=== PATIENT | female | born 1950 | race Caucasian/White ===

== ENCOUNTER 2022-06-28 12:17 | Outpatient (REF) | payer OTHER, SELFPAY | END 2022-06-28 12:18 | disposition home or self-care (01) | LOC: HO.MAMMO 12:17 | PROVIDERS: PCP Pediatrics; Visit Provider Pediatrics | DX: Z13.89 Encounter for screening for other disorder (principal) ==

== ENCOUNTER 2022-11-29 11:46 | Outpatient (REF) | payer OTHER, SELFPAY ==
[2022-11-29 14:36] LABS: MANUAL DIFF FLAG NO
[2022-11-29 14:38] LABS: Basophils Absolute Auto 0.1 X10*3/uL (0.0-0.2); Basophils Percent Auto 0.9 % (0-2); Eosinophils Absolute Auto 0.2 X10*3/uL (0.0-0.4); Eosinophils Percent Auto 3.8 % (0-4); Hematocrit 41.9 % (37.0-47.0); Hemoglobin 13.8 g/dl (12.0-16.0); Imm Gran Abs Auto 0.02 X10*3/uL (0.00-0.03); Imm Gran Pct Auto 0.3 % (0.0-0.4); Lymphocytes Percent Auto 34.6 % (20-40); Mean Corpuscular HGB Conc 32.9 g/dl (31.0-35.0); Mean Corpuscular Hemoglobin 28.9 pg (27.0-33.0); Mean Corpuscular Volume 87.7 fL (80.0-98.0); Mean Platelet Volume 11.8 fL (9.4-12.3); Monocytes Absolute Auto 0.4 X10*3/uL (0.1-1.2); Monocytes Percent Auto 6.8 % (2-11); Neutrophils Absolute Auto 3.1 x10*3/uL (2.0-8.3); Neutrophils Percent Auto 53.6 % (45-73); Platelet Count 196 X10*3/uL (160-400); Red Blood Count 4.78 X10*6/uL (4.20-5.50); Red Cell Distribution Width 12.6 % (11.0-16.0); White Blood Count 5.7 X10*3/uL (4.8-10.8)
[2022-11-29 16:11] LABS: Anion Gap 12 (12-20); Blood Urea Nitrogen 21 mg/dL (9-16); Calcium 10.1 mg/dL (8.4-10.2); Carbon Dioxide 28 mmol/L (22-29); Chloride 106 mmol/L (96-108); Cholesterol 222 mg/dL (<200); Estimated Glomerular Filt Rate > 60; Glucose Fasting 88 mg/dL (60-99); HDL Cholesterol 50 mg/dL (>40); LDL Cholesterol Calculated 130 mg/dL (<100); Potassium 4.8 mmol/L (3.3-5.1); Sodium 141 mmol/L (135-145); Triglycerides 213 mg/dL (<150)
[2022-11-29 16:31] LABS: TSH reflex Free T4 2.47 uIU/mL (0.32-4.0)
[2022-11-29 16:38] LABS: Folate 14.4 ng/mL (> or = 4.0); Vitamin B12 685 pg/mL (200-900)
== END 2022-11-29 11:47 | disposition home or self-care (01) ==
LOC: HO.CHCLDS 11:46
PROVIDERS: Visit Provider Pediatrics
DX: R41.3 Other amnesia (principal); Z13.89 Encounter for screening for other disorder
CPT/HCPCS: 36415; 80048; 80061; 82306; 82607; 82746; 84443; 85025

== ENCOUNTER 2024-06-19 10:08 | Outpatient (REF) | payer OTHER, SELFPAY ==
--- OUTSIDE RECORDS SUMMARY | 2024-06-19 12:37 | XMS_ITS | Encounter Summary ---
Author Organization [employer] Address [address] [facility] 7t [place] [address] Care Team Providers Care Computer Operations Specialist Name Role Phone Rama Diane MD Primary Care Provider [phone] Reason for Visit * Reason Comments Follow-up Depression Encounter Details Date Type Department Care Team (Latest Contact Info) Description 06/19/2024 9:15 AM EDT Office Visit [facility] MED & PEDS [address] [place], [place] [phone] Rama Diane MD [address] [place] [address] Elevated BP without diagnosis of hypertension (Primary Dx); Acquired hypothyroidism Social History Tobacco Use Types Packs/Day Years Used Date Smoking Tobacco: Never Smokeless Tobacco: Never Depression Answer Date Recorded Patient Health Questionnaire-9 Score 18 02/08/2024 Patient Health Questionnaire-9 Score 18 02/08/2024 Last PHQ-9: Questionnaire Data Not on file 1 04/09/2023 Housing Stability Answer Date Recorded What is your housing situation today? I have kylah dotson 02/08/[address] you li ve. Do you have problems with any of the following? None of the above 02/08/2024 Food Insecurity Answer Date Recorded Within the past 12 months, y ou worried that your food would run out before you got money to buy more: Never True 02/08/2024 Within the past 12 months,th e food you bought just didn't last and you didn't have enough money to get more: Never True 04/2023 Transportation Answer Date Recorded In the past 12 months, has l ack of transportation kept you from medical appts, meetings, work or from getting things needed for daily living? No 02/08/2024 Utilities Answer Date Recorded In the past 12 months, has t he electric, gas, oil or water company threatened to shut off services in your home? No 02/08/2024 Depression Answer Date Recorded Patient Health Questionnaire-2 Score 6 02/08/2024 Internet Access Answer Date Recorded Internet Access Q1 Yes 02/08/2024 Internet Access Q2 Not on file 02/08/2024 Comments Unknown Sex and Gender Information Value Date Recorded Sex Assigned at Female 02/06/2022 10:15 AM EDT Legal Sex Female 10:15 AM EDT Gender Identity Female 02/06/2022 10:15 AM EDT Sexual Orientation Don't know 02/06/2022 10 :15 AM EDT documented as of this encounter Last Filed Vital Signs Vital Sign Reading Time Taken Comments Blood Pressure 154/86 06/19/2024 8:54 AM EDT Pulse 74 06/19/2024 8:54 AM EDT Temperature 36.6 ??C (97.8 ??F) 06/19/2024 8:54 AM ED T Respiratory Rate 14 06/19/2024 8:54 AM EDT Oxygen Saturation 96% 06/19/2024 8:54 AM EDT Inhaled Oxygen Concentration - - Weight 67.4 kg (148 lb 9.6 oz) 06/19/2024 8:54 A M EDT Height 161.3 cm (5' 3.5 ) 06/19/2024 8:54 AM EDT Body Mass Index 25.91 06/19/2024 8:54 AM EDT documented in this encounter Plan of Treatment Upcoming Encounters Date Type Department Care Team (Late st Contact Info) Description 08/20/2024 11:30 AM EDT Office Visit [facility] MED & PEDS [address] [place] [address] Rama Diane MD [address] [place] [address] Scheduled Orders Name Type Priority Associated Diagnoses Orde r Schedule CBC auto differential Lab Routine Elevated BP without diagnosis of hypertension Acquired hypothyroidism Expected: 06/19/2024 (Approximate), Expires: 06/19/2025 Vitamin B12/Folate, Serum Panel Lab Routine Elevated BP without diagnosis of hypertension Acquired hypothyroidism Expected: 06/19/2024, Expires: 06/19/2025 TSH W/Reflex to FT4 Lab Routine Elevated BP without diagnosis of hypertension Acquired hypothyroidism Expected: 06/19/2024 (Approximate), Expires: 06/19/2025 Urinalysis with reflex microscopic Lab Routine Elevated BP without diagnosis of hypertension Acquired hypothyroidism Expected: 06/19/2024, Expires: 06/19/2025 Albumin, Random Urine W/Creatinine Lab Routine Elevated BP without diagnosis of hypertension Acquired hypothyroidism Expected: 06/19/2024 (Approximate), Expires: 06/19/2025 Basic Metabolic Panel, Fasting Lab Routine Elevated BP without diagnosis of hypertension Acquired hypothyroidism Expected: 06/19/2024 (Approximate), Expires: 06/19/2025 Magnesium Lab Routine Elevated BP without diagnosis of hypertension Acquired hypothyroidism Expected: 06/19/2024, Expires: 06/19/2025 documented as of this encounter Visit Diagnoses Diagnosis Elevated BP without diagnosis of hypertension- Primary Acquired hypothyroidism Unspecified hypothyroidism documented in this encounter Additional Health Concerns Assessment Noted Time PHQ-9 Depression Total Score: 18 024 10:26 AM EDT documented as of this encounter Care Teams Computer Operations Specialist Relationship Specialty Start Date End Date Rama Diane MD [address] [place] [id number] PCP - General Family Medicine 04/09/18 documented as of this encounter
--- OUTSIDE RECORDS SUMMARY | 2024-06-19 12:37 | XMS_ITS | Encounter Summary ---
Author Organization [employer] Address [address] [facility] 7t [place] [address] Care Team Providers Care Court Registry Officer Name Role Phone Rama Diane MD Primary Care Provider [phone] Encounter Details Date Type Department Care Team (Latest Contact Info) Description 06/19/2024 Travel Social History Tobacco Use Types Packs/Day Years Used Date Smoking Tobacco: Never Smokeless Tobacco: Never Depression Answer Date Recorded Patient Health Questionnaire-9 Score 18 02/08/2024 Patient Health Questionnaire-9 Score 18 02/08/2024 Last PHQ-9: Questionnaire Data Not on file 1 04/09/2023 Housing Stability Answer Date Recorded What is your housing situation today? I have kylahtaurus dotson 02/08/[address] you [...] AM EDT documented as of this encounter Plan of Treatment Upcoming Encounters Date Type Department Care Team (Late st Contact Info) Description 08/20/2024 11:30 AM EDT Office Visit [facility] MED & PEDS [address] [place] [address] Rama Diane MD [address] [place] [address] documented as of this encounter Visit Diagnoses Not on filedocumented in this encounter Additional Health Concerns Assessment Noted Time PHQ-9 Depression Total Score: 18 024 10:26 AM EDT documented as of this encounter Care Teams Court Registry Officer Relationship Specialty Start Date End Date Rama Diane MD [address] [place] [address] PCP - General Family Medicine 04/09/18 documented as of this encounter
--- OUTSIDE RECORDS SUMMARY | 2024-06-19 12:37 | XMS_ITS | Encounter Summary ---
Author Organization [employer] Address [address] [facility] 7t [place] [address] Care Team Providers Care Room Inspector Name Role Phone Rama Diane MD Primary Care Provider [phone] Reason for Visit * Reason Comments Med Refill Encounter Details Date Type Department Care Team ([facility] st Contact Info) Description 06/18/2024 Refill [facility] MED & PEDS [address] [place], [place] [phone] Rama Diane MD [address] [place] [address] Acute cough; Acquired hypothyroidism; Age-related osteoporosis without current pathological fracture; Breast cancer screening by mammogram; Chronic right shoulder pain Social History Tobacco Use Types Packs/Day Years [...] Upcoming Encounters Date Type Department Care Team ([facility] st Contact Info) Description 08/20/2024 11:30 AM EDT Office Visit [facility] MED & PEDS [address] [place] [address] Rama Diane MD [address] [place] [address] documented as of this encounter Visit Diagnoses Diagnosis Acute cough Acquired hypothyroidism Unspecified hypothyroidism Age-related osteoporosis without current pathological fracture Breast cancer screening by mammogram Chronic right shoulder pain Pain in joint, shoulder region documented in this encounter Additional Health Concerns Assessment Noted Time PHQ-9 Depression Total Score: 18 024 10:26 AM EDT documented as of this encounter Care Teams Room Inspector Relationship Specialty Start Date End Date Rama Diane MD [address] [place] [address] PCP - General Family Medicine 04/09/18 documented as of this encounter
--- OUTSIDE RECORDS SUMMARY | 2024-06-19 12:37 | XMS_ITS | Encounter Summary ---
Author Organization [employer] Address [address] [facility] 7t [place] [address] Care Team Providers Care Food Checker Name Role Phone Rama Diane MD Primary Care Provider [phone] Encounter Details Date Type Department Care Team (Late Contact Info) Description 04/19/2022 Abstract [facility] ADULT [facility] [address] [place] [address] Hemalatha Guzman DDS [address] [place] [address] Social History Tobacco Use Types Packs/Day Years Used Date Smoking Tobacco: Never Assessed Comments Unknown Sex and Gender Information Value [...] Description 08/20/2024 11:30 AM EDT Office Visit [facility] MED & PEDS [address] [place] [address] Rama Diane MD [address] [place], [place] [phone] documented as of this encounter Visit Diagnoses Not on filedocumented in this encounter Care Teams Food Checker Relationship Specialty Start Date End Date Rama Diane MD [address] [place], [place] [phone] PCP - General Family Medicine 04/09/18 documented as of this encounter
--- OUTSIDE RECORDS SUMMARY | 2024-06-19 12:37 | XMS_ITS | Encounter Summary ---
Author Organization [employer] Address [address] [facility] 7t [place] [address] Care Team Providers Care Hotel Service Supervisor Name Role Phone Rama Diane MD Primary Care Provider [phone] Encounter Details Date Type Department Care Team (Late st Contact Info) Description 02/12/2024 Orders Only [facility] [address] [place] [address] Provider, MD Libby Social History Tobacco Use Types Packs/Day Years [...] Description 08/20/2024 11:30 AM EDT Office Visit [facility] CHC MED & PEDS [address] [place] [address] Rama Diane MD [address] [place] [address] documented as of this encounter Procedures Procedure Name Priority Date/Time Associated Diagnosis Comments XR SHOULDER 2+ VIEWS RIGHT Routine 02/11/2024 9:50 AM EST documented in this encounter Results * XR Shoulder 2+ Views Right (02/11/2024 9:50 AM EST) Anatomical Region Laterality Modality Upper Extremities, Shoulder Right Radi ographic Imaging us Historical Provider MD BARAJAS XR PROCEDURES Final R esult documented in this encounter Visit Diagnoses Not on filedocumented in this encounter Additional Health Concerns Assessment Noted Time PHQ-9 Depression Total Score: 18 024 10:26 AM EDT documented as of this encounter Care Teams Hotel Service Supervisor Relationship Specialty Start Date End Date Rama Diane MD [address] [place] [address] PCP - General Family Medicine 04/09/18 documented as of this encounter
--- OUTSIDE RECORDS SUMMARY | 2024-06-19 12:37 | XMS_ITS | Clinical Summary ---
Author Organization [employer] Address [address] [facility] 7t [place] [address] Care Team Providers Care Marketing Performance Analyst Name Role Phone Rama Diane MD Primary Care Provider [phone] Allergies No known active allergies Medications omega-3 (Fish Oil) 1000 MG capsuleIndicatio ns:Acute cough,Acquired hypothyroidism,A ge-related osteoporosis without current pathological fracture,Breast cancer screening by mammogram,Chroni c right shoulder pain take 1 capsule orally bid 60 capsule 11 05/16/19 23 Active albuterol 108 (90 Base) MCG/ACT inhalerIndicatio ns:Acute cough,Acquired hypothyroidism,A ge-related osteoporosis without current pathological fracture,Breast cancer screening by mammogram,Chroni c right shoulder pain INHALE 1 PUFF BY MOUTH EVERY 4 HOURS 8.5 g 1 05/07/19 24 Active atorvastatin (Lipitor) 20 MG tabletIndication s:Dyslipidemia TAKE 1 TABLET(20 MG) BY MOUTH IN THE MORNING 30 tablet 05/29/19 24 Active cetirizine (ZyrTEC) 10 MG tabletIndication s:Acute cough,Acquired hypothyroidism,A ge-related osteoporosis without current pathological fracture,Breast cancer screening by mammogram,Chroni c right shoulder pain TAKE 1 TABLET BY MOUTH EVERY DAY 90 tablet 3 07/05/19 24 Active cholecalciferol 50 MCG (1999 UT) capsuleIndicatio ns:Acute cough,Acquired hypothyroidism,A ge-related osteoporosis without current pathological fracture,Breast cancer screening by mammogram,Chroni c right shoulder pain TAKE 1 CAPSULE BY MOUTH EVERY 12 HOURS 60 capsule 11 07/05/19 24 Active omega-3 acid ethyl esters (Lovaza) 1 g capsule TAKE 1 CAPSULE BY MOUTH TWICE DAILY 60 capsule 11 01/07/20 24 Active levothyroxine (Synthroid, Levoxyl) 50 MCG tablet TAKE 1 TABLET BY MOUTH EVERY MORNING 90 tablet 1 01/07/20 24 Active meloxicam (Mobic) 7.5 MG tablet Take 1 tablet (7.5 mg) by mouth Once per day. 30 tablet 5 02/14/20 24 025 Active ascorbid acid ER (Vitamin C) 500 MG ER capsule TAKE 1 CAPSULE BY MOUTH DAILY 90 capsule 1 04/29/19 25 Active polyethylene glycol, PEG, 3350 (Glycolax) 17 GM/SCOOP powderIndication s:Chronic idiopathic constipation DISSOLVE 17 GRAMS IN 240ML OF FLUIDS AND DRINK BY MOUTH EVERY MORNING 119 g 2 04/29/19 25 Active ibuprofen 600 MG tablet Take 1 tablet (600 mg) by mouth every 8 (eight) hours if needed for moderate pain or fever. 90 tablet 3 06/20/19 25 025 Active Blood Pressure kitIndications:E levated BP without diagnosis of hypertension Check BP daily 1 kit 06/20/19 25 Active venlafaxine XR (Effexor XR) 37.5 MG 24 hr capsule Take 1 capsule (37.5 mg) by mouth Once per day. 30 capsule 3 06/20/19 25 026 Active traZODone (Desyrel) 50 MG tablet Take 1 tablet (50 mg) by mouth at bedtime. 30 tablet 3 02/01/20 23 025 Discontinued venlafaxine XR (Effexor XR) 75 MG 24 hr capsule Take 1 capsule (75 mg) by mouth Once per day. Do not crush or chew. 30 capsule 11 02/08/20 24 025 Discontinued Active Problems Problem Noted Date Diagnosed Date Adjustment disorder with anxious mood 03/16/2015 Acquired hypothyroidism 12/29/2011 Gastroesophageal reflux disease 12/29/2011 Encounters Date Type Department Care Team Description 06/19/2024 9:15 AM EDT Office Visit [facility] MED & PEDS [address] [facility] [place] [address] Rama Diane MD Elevated BP without diagnosis of hypertension (Primary Dx); Acquired hypothyroidism 06/19/2024 Travel 06/18/2024 Refill [facility] MED & PEDS [address] [place] [address] Rama Diane MD Acute cough; Acquired hypothyroidism; Age-related osteoporosis without current pathological fracture; Breast cancer screening by mammogram; Chronic right shoulder pain 04/28/2024 Refill [facility] MED & PEDS [address] [place] [address] Rama Diane MD Chronic idiopathic constipation from Last 3 Months Immunizations Name Administration Dates Next Due Zoster, Recombinant 02/08/2024 Social History Tobacco Use Types Packs/Day Years Used Date Smoking Tobacco: Never Smokeless Tobacco: Never Tobacco Cessation:Counseling Given: Not Answered Depression Answer Date Recorded Patient Health Questionnaire-9 [...] Don't know 02/06/2022 10 :15 AM EDT Last Filed Vital Signs Vital Sign Reading [...] Mass Index 25.91 06/19/2024 8:54 AM EDT Plan of Treatment Upcoming Encounters Date Type Department Care Team (Late st Contact Info) Description 08/20/2024 11:30 AM EDT Office Visit [facility] MED & PEDS [address] [place] [address] Rama Diane MD [address] [place] [address] Health Maintenance Due Date Last Done Comments CT Colonography 1948 Colonoscopy 1948 Colorectal Cancer Screening 1948 Dental Oral Exam 1948 Dental Prophylaxis 1948 Dental X-Ray: Bitewings 1948 Dental X-Ray: Full Mouth 1948 FIT DNA/Cologuard 1948 FIT 1948 FOBT 1948 Sigmoidoscopy 1948 Hepatitis C Screening 1966 RSV Patients and Patients Aged 60 years or older (1 - 1-dose 75+ series) 11/27/2023 COVID-19 Vaccine ( season) 2023 05/10/2021, 08/26/2020, 08/05/2020 Influenza Vaccine (#1) 2023 9, 01/30/2018, 05/11/2017, Additional history exists Zoster Vaccines (3 of 3) 04/04/2024 02/08/2024, 04/10 Depression Monitoring (PHQ-9) 08/07/2024 02/08/2024, 02/08/2024 Alcohol/Substance Use Screening 02/07/2025 02/08/2024 Depression Screening 02/07/2025 02/08/2024, 02/08/20 24 SDOH Screening 02/07/2025 02/08/2024 Tobacco Screening 02/07/2025 02/08/2024 DTaP/Tdap/Td Vaccines (2 - Td or Tdap) 03/16/2025 03/16/2015 Pneumococcal Vaccine: 50+ Years Completed 03/18/2019, 05/03/2015 HIB Vaccines Aged Out No longer eligi ble based on patient's age to complete this topic HPV Vaccines Aged Out No longer eligi ble based on patient's age to complete this topic Hepatitis A Vaccines Aged Out No long er eligible based on patient's age to complete this topic Hepatitis B Vaccines Aged Out No long er eligible based on patient's age to complete this topic IPV Vaccines Aged Out No longer eligi ble based on patient's age to complete this topic Meningococcal Vaccine Aged Out No onesimo sang eligible based on patient's age to complete this topic RSV under 20 months Aged Out No longe r eligible based on patient's age to complete this topic Rotavirus Vaccines Aged Out No longer eligible based on patient's age to complete this topic Insurance [facility] Care Teams Marketing Performance Analyst Relationship Specialty Start Date End Date Rama Diane MD [address] [place] [address] PCP - General Family Medicine 04/09/18
--- OUTSIDE RECORDS SUMMARY | 2024-06-19 12:37 | XMS_ITS | Encounter Summary ---
Author Organization [employer] Address [address] [facility] 7t [place] [address] Care Team Providers Care Lasting Machine Operator Hand Method Name Role Phone Rama Diane MD Primary Care Provider [phone] Reason for Visit * Reason Onset Date Comments Results 02/13/2024 Encounter Details Date Type Department Care Team ([facility] st Contact Info) Description 02/13/2024 Telephone [facility] MEDIC[facility] [address] [place] [address] Rama Diane MD [address] [place], [place] [phone] Results Social History Tobacco Use Types Packs/Day Years [...] AM EDT documented as of this encounter Miscellaneous Notes * Telephone Encounter - Emmanueljhonny RochaGerry - 02/13/2024 3:25 PM EST TC from pt requesting call back regarding Results. Type of results: X ray shoulder Date when done: 02/10 Facility: [facility] Reference labratories documented in this encounter Plan of Treatment Upcoming Encounters Date Type Department Care Team (Late st Contact Info) Description 08/20/2024 11:30 AM EDT Office Visit [facility] CHC MED & PEDS [address] [place] [address] Rama Diane MD [address] [place] [address] documented as of this encounter Visit Diagnoses Not on filedocumented in this encounter Additional Health Concerns Assessment Noted Time PHQ-9 Depression Total Score: 18 024 10:26 AM EDT documented as of this encounter Care Teams Lasting Machine Operator Hand Method Relationship Specialty Start Date End Date Rama Diane MD [address] [place] [address] PCP - General Family Medicine 04/09/18 documented as of this encounter
--- OUTSIDE RECORDS SUMMARY | 2024-06-19 12:37 | XMS_ITS | Clinical Summary ---
Author Organization [employer] [facility] ity Address [address] [place] [address] Care Team Providers Care Seo Specialist Name Role Phone Unavailable Primary Care Provider Unavailabl e Social History Tobacco Use Types Packs/Day Years Used Date Smoking Tobacco: Never Assessed Comments Unknown Sex and Gender Information Value Date Recorded Sex Assigned at Not on file Legal Sex Female 10:11 AM EST Gender Identity Not on file Sexual Orientation Not on file Plan of Treatment Health Maintenance Due Date Last Done Comments DTaP,Tdap,and Td Vaccines (1 - Tdap) 11/27/1967 Pneumococcal Vaccine: 50+ Years (1 of 1 - PCV) 1998 Zoster Vaccines (1 of 2) 1998 Colorectal Cancer Screening: Colonoscopy 03/07/2022 Depression Screening 03/07/2022 Falls Risk Assessment 03/07/2022 Hepatitis C Screening 03/07/2022 Osteoporosis Screening (Bone Density Screening) 03/07/2022 Social Influencers of Health Screening 03/07/2022 RSV Immunization Patients 60 + Years Old (1 - 1-dose 75+ series) 11/27/2023 COVID-19 Vaccine (1 - 2023-2 5 season) 2023 Influenza Vaccine (#1) 2023 Breast Cancer Screening Discontinued 09/27/19 23, 07/29/2021 HIB Vaccines Aged Out No longer eligi [...] on patient's age to complete this topic MMR Vaccines Aged Out No longer eligi ble based on patient's age to complete this topic Meningococcal ACWY Vaccine Aged Out N o longer eligible based on patient's age to complete this topic Meningococcal B Vacine Aged Out No lo nger eligible based on patient's age to complete this topic RSV Immunization Patients Under 20 months Aged Out No longer eligible based on patient's age to complete this topic Varicella Vaccines Aged Out No longer eligible based on patient's age to complete this topic Procedures Procedure Name Priority Date/Time Associated Diagnosis Comments [facility] SCREENING DIGITAL Routine 09/26/2022 4:29 PM EDT Encounter for screening mammogram for malignant neoplasm of breast from Last 3 Months or Most Recently Relevant to Health Maintenance Results * MICHELLE SCREENING DIGITAL (09/26/2022 4:29 PM EDT) Anatomical Region Laterality Modality Mammography 09/25/2022 3:36 PM EDT Narrative 09/26/2022 4:[address] [facility] Diagnostic Imaging Department [address] [place] [address] Patient: ??OCRINNA BONILLA ?/Age/Sex: 1950 - 71 - F Unit#: ??[id number] ? Location/Status: ??SPDIMAM/REG CLI ? Mnemonic/Ordering Site: ??DIGSC/SPMAM Ordering Physician: ??KESHAV DIANE [facility] Screening Digital - 09/25/22 - 1548 Report Status:Signed EXAM: [facility] Screening Digital EXAM DATE AND TIME: 09/25/2022 3:49 PM HISTORY: ??Screening. Right breast biopsy in 1992, pathology benign. COMPARISON: ??07/29/21, 02/26/18, 05/24/16, 01/25/15 TECHNIQUE: CC and MLO views of both breasts were obtained using full field digital mammography. Bilateral digital breast tomosynthesis was performed in the MLO projection. Computer aided detection with [employer]) 7.2-H and [employer] 3D 3.1 was employed. TISSUE DENSITY: b. There are scattered areas of fibroglandular density. FINDINGS: No suspicious masses, grouped microcalcifications, or areas of architectural distortion are seen. Vascular calcification is present. The skin is unremarkable. IMPRESSION: Stable mammographic appearance of the breasts. ??No evidence of malignancy is seen. A negative mammogram in the presence of a clinically suspicious palpable abnormality does not preclude the possibility of malignancy or alter the indications for biopsy. BI-RADS: ??Category 2: Benign RECOMMENDATION(S): 1: Routine screening mammogram BILATERAL in 1 year. 25624, 12898 3342F, 7025F Dictating Physician: ??JOSSY GUERRERO MD Electronically Signed by: ??JOSSY GUERRERO MD Dic Date/Time: ??09/26/221628 Sign date/Time: ??09/26/221628 Procedure Note Jossy Guerrero MD - 05/15/[address] [facility] Diagnostic Imaging Department [address] [place] [address] Patient: CORINNA BONILLA D.O.B./Age/Sex: 1950 - 71 - F Unit#: [id number] Location/Status: [facility]/REG CLI Mnemonic/Ordering Site: [facility] Ordering Physician: KESHAV DIANE [facility] Screening Digital - 09/25/22 - 1548 Report Status:Signed EXAM: [facility] Screening Digital EXAM DATE AND TIME: 09/25/2022 3:49 PM HISTORY: Screening. Right breast biopsy in 1992, pathology benign. COMPARISON: 07/29/21, 02/26/18, 05/24/16, 01/25/15 TECHNIQUE: CC and MLO views of both breasts were obtained using fullfield digital mammography. Bilateral digital breast tomosynthesis was performedin the MLO projection. Computer aided detection with [employer]) 7.2-H andBillogram 3D 3.1 was employed. TISSUE DENSITY: b. There are scattered areas of fibroglandular density. FINDINGS: No suspicious masses, grouped microcalcifications, or areas ofarchitectural distortion are seen. Vascular calcification is present. The skin is unremarkable. IMPRESSION: Stable mammographic appearance of the breasts. No evidence of malignancyis seen. A negative mammogram in the presence of a clinically suspicious palpable abnormality does not preclude the possibility of malignancy or alter the indications for biopsy. BI-RADS: Category 2: Benign RECOMMENDATION(S): 1: Routine screening mammogram BILATERAL in 1 year. 60705, 19187 3342F, 7025F Dictating Physician: JOSSY GUERRERO MD Electronically Signed by: JOSSY GUERRERO MD Dic Date/Time: 09/26/229 Sign date/Time: 09/26/221628 us Keshav Diane MD IMG BI PROCEDURES Final Resul t from Last 3 Months or Most Recently Relevant to Health Maintenance
[2024-06-19 14:11] LABS: Appearance Urine Clear; Color Urine Yellow; Glucose Urine UA Negative (Negative); Leukocyte Esterase Urine Small (1+) (Negative); Nitrite Urine Negative (Negative); PH 5.5 (5.0-9.0); UMIC TRIGGER UACC YES; Urine Blood Negative (Negative); Urine Ketones Negative (Negative); Urine Protein Negative (Neg-Trace)
[2024-06-19 14:15] LABS: Bacteria Urine None Seen (None Seen); Hyaline Casts Urine 0-2 /LPF (0-2); RBC Urine 0-2 /HPF (0-2); Squamous Epithelial Cell Urine 0-2 /HPF (0-2); UACC Culture Trigger YES
[2024-06-19 14:21] LABS: MANUAL DIFF FLAG NO
[2024-06-19 14:24] LABS: Microalbum/Creatinine Ratio Ur 4.8 ug/mg cr (<30)
[2024-06-19 14:30] LABS: Basophils Percent Auto 0.6 % (0-2); Eosinophils Absolute Auto 0.2 X10*3/uL (0.0-0.4); Eosinophils Percent Auto 4.5 % (0-4); Hematocrit 40.4 % (37.0-47.0); Hemoglobin 13.1 g/dl (12.0-16.0); Imm Gran Abs Auto 0.01 X10*3/uL (0.00-0.03); Imm Gran Pct Auto 0.2 % (0.0-0.4); Lymphocytes Absolute Auto 1.6 X10*3/uL (1.2-4.9); Lymphocytes Percent Auto 32.7 % (20-40); Mean Corpuscular HGB Conc 32.4 g/dl (31.0-35.0); Mean Corpuscular Hemoglobin 28.7 pg (27.0-33.0); Mean Corpuscular Volume 88.4 fL (80.0-98.0); Mean Platelet Volume 11.3 fL (9.4-12.3); Monocytes Absolute Auto 0.4 X10*3/uL (0.1-1.2); Monocytes Percent Auto 7.6 % (2-11); Neutrophils Absolute Auto 2.7 x10*3/uL (2.0-8.3); Neutrophils Percent Auto 54.4 % (45-73); Platelet Count 197 X10*3/uL (160-400); Red Blood Count 4.57 X10*6/uL (4.20-5.50); Red Cell Distribution Width 12.6 % (11.0-16.0); White Blood Count 4.9 X10*3/uL (4.8-10.8)
[2024-06-19 14:52] LABS: Anion Gap 11 (12-20); Blood Urea Nitrogen 16 mg/dL (9-16); Calcium 9.8 mg/dL (8.4-10.2); Carbon Dioxide 28 mmol/L (22-29); Chloride 109 mmol/L (96-108); Estimated Glomerular Filt Rate > 60; Glucose Fasting 88 mg/dL (60-99); Magnesium 2.1 mg/dL (1.6-2.6); Potassium 4.5 mmol/L (3.3-5.1); Sodium 143 mmol/L (135-145)
[2024-06-19 15:08] LABS: TSH reflex Free T4 4.59 uIU/mL (0.32-4.0)
[2024-06-19 15:18] LABS: Folate 13.9 ng/mL (> or = 4.0); Vitamin B12 971 pg/mL (200-900)
== END 2024-06-19 10:09 | disposition home or self-care (01) ==
LOC: HO.CHCLDS 10:08
PROVIDERS: Visit Provider Pediatrics
DX: E03.9 Hypothyroidism, unspecified (principal); R03.0 Elevated blood-pressure reading, without diagnosis of hypertension
CPT/HCPCS: 36415; 80048; 81001; 82043; 82570; 82607; 82746; 83735; 84439; 84443; 85025; 87086

== ENCOUNTER 2024-10-28 12:05 | Outpatient (REF) | payer OTHER, SELFPAY ==
--- NOTE | ~2024-10-28 | US_ITS ---
Exam: Soft tissue ultrasound in the proximal lateral right thigh. INDICATION: Anterior Right thigh mass. TECHNIQUE: Multiplane grayscale imaging of the soft tissues was performed. FINDINGS: There is a circumscribed mass deep to the subcutaneous soft tissues in the anterior right thigh measuring 6.5 x 5.1 x 2.3 cm (CC by transverse by AP). It is hyperechoic compared to the subcutaneous adipose tissues. US/US Extremity Nonvas Limited RT IMPRESSION: Indeterminant anterior right thigh mass. Follow-up MRI right hip without and with IV contrast for mass characterization. Electronically signed by: Primo Jama MD 10/28/2024 12:50 PM EDT
--- OUTSIDE RECORDS SUMMARY | 2024-10-28 13:13 | XMS_ITS | Clinical Summary ---
Author Organization [employer] [facility] it Address [address] [place] [address] Care Team Providers Care Visual Display Manager Name Role Phone Unavailable Primary Care Provider [...] 2) 1998 Colorectal Cancer Screening: Colonoscopy 03/07/2022 Falls Risk Assessment 03/07/2022 Hepatitis C Screening 03/07/2022 Osteoporosis Screening (Bone Density Screening) 03/07/2022 Social Influencers of Health Screening 03/07/2022 RSV Immunization Adult Patients (1 - 1-dose 75+ series) 11/27/2023 COVID-19 Vaccine ( - 2023-2 5 season) 2023 Depression Screening 04/09/2024 Influenza Vaccine (#1) 2024 Breast Cancer Screening Discontinued 09/27/19 23, 07/29/2021 [...] age to complete this topic Meningococcal B Vaccine Aged Out No l onger eligible based on patient's age to complete this topic RSV Immunization Patients Under 20 months Aged Out No longer eligible based on patient's age to complete this topic Varicella Vaccines Aged Out No longer eligible based on patient's age to complete this topic Procedures Procedure Name Priority Date/Time Associated Diagnosis Comments [facility] Routine 09/26/2022 4:29 PM EDT Encounter for screening mammogram for malignant neoplasm of breast from Last 3 Months or Most Recently Relevant to Health Maintenance Results * [facility] (09/26/2022 4:29 PM EDT) Anatomical Region Laterality Modality Mammography 09/25/2022 3:36 PM EDT Narrative 09/26/2022 4:[address] [facility] Diagnostic Imaging Department [address] [place] [address] Patient: MAYOCORINNA /Age/Sex: 1950 - 71 - F Unit#: [id number] Location/Status: [facility] CLI Mnemonic/Ordering Site: [facility] Ordering Physician: KESHAV DIANE [facility] Screening Digital - 09/25/22 - 2343 Report Status:Signed EXAM: [facility] Screening Digital EXAM DATE AND TIME: 09/25/2022 3:49 PM HISTORY: Screening. Right breast biopsy in 1992, pathology benign. COMPARISON: 07/29/21, 02/26/18, 05/24/16, 01/25/15 TECHNIQUE: CC and MLO views of both breasts were obtained using full field digital mammography. Bilateral digital breast tomosynthesis was performed in the MLO projection. Computer aided detection with [employer] 7.2-H and [employer] 3D 3.1 was employed. TISSUE DENSITY: b. There are scattered areas of fibroglandular density. FINDINGS: No suspicious masses, grouped microcalcifications, or areas of architectural distortion are seen. Vascular calcification is present. The skin is unremarkable. IMPRESSION: Stable mammographic appearance of the breasts. No evidence of malignancy is seen. A negative mammogram in the presence of a clinically suspicious palpable abnormality does not preclude the possibility of malignancy or alter the indications for biopsy. BI-RADS: Category 2: Benign RECOMMENDATION(S): 1: Routine screening mammogram BILATERAL in 1 year. 37523, 95879 3342F, 7025F Dictating Physician: JOSSY GUERRERO MD Electronically Signed by: JOSSY GUERRERO MD Dic Date/Time: 09/26/221628 Sign date/Time: 09/26/22 162 Procedure Note Jossy Guerrero MD - 05/15/2023 [facility] Diagnostic Imaging Department [address] [place] [address] Patient: CORINNA BONILLA /Age/Sex: 1950 - 71 - F Unit#: [id number] [facility] Site: [facility] Ordering Physician: KESHAV DIANE [facility] Screening Digital - 09/25/22 - 1548 Report Status:Signed EXAM: [facility] Screening Digital EXAM DATE AND TIME: 09/25/2022 3:49 PM HISTORY: Screening. Right breast biopsy in 1992, pathology benign. COMPARISON: 07/29/21, 02/26/18, 05/24/16, 01/25/15 TECHNIQUE: CC and MLO views of both breasts were obtained using fullfield digital mammography. Bilateral digital breast tomosynthesis was performedin the MLO projection. Computer aided detection with [employer] 7.2-H and[employer] 3D 3.1 was employed. TISSUE DENSITY: b. [...] Routine screening mammogram BILATERAL in 1 year. 18844, 23191 3342F, 7025F Dictating Physician: JOSSY GUERRERO MD Electronically Signed by: JOSSY GUERRERO MD Dic Date/Time: 09/26/22 1629 Sign date/Time: 09/26/221628 Keshav Diane MD IMG BI PROCEDURES Final Resul t from Last 3 Months or Most Recently Relevant to Health Maintenance
--- OUTSIDE RECORDS SUMMARY | 2024-10-28 13:13 | XMS_ITS | Encounter Summary ---
Author Organization [employer] Address [address] [facility] [address] [place] [address] Care Team Providers Care Circle Cutting Saw Operator Name Role Phone Rama Diane MD Primary Care Provider Reason for Visit * Reason Comments Med Refill Encounter Details Date Type Department Care Team ([facility] Contact Info) Description 06/18/2024 Refill [facility] MED & PEDS [address] [place], [place] [phone] Rama Diane MD [address] [place] [address] Acute cough; Acquired hypothyroidism; Age-related osteoporosis without [...] as of this encounter Plan of Treatment Not on file documented as of this encounter Visit Diagnoses Diagnosis Acute cough Acquired hypothyroidism Unspecified hypothyroidism Age-related osteoporosis without current pathological fracture Breast cancer screening by mammogram Chronic right shoulder pain Pain in joint, shoulder region documented in this encounter Additional Health Concerns Assessment Noted Time PHQ-9 Depression Total Score: 18 024 10:26 AM EDT documented as of this encounter Care Teams Circle Cutting Saw Operator Relationship Specialty Start Date End Date Rama Diane MD [address] [place] [id number] PCP - General Family Medicine 04/09/18 documented as of this encounter
== END 2024-10-28 12:06 | disposition home or self-care (01) ==
LOC: HO.US 12:05
PROVIDERS: PCP Pediatrics; Visit Provider Pediatrics
DX: R22.41 Localized swelling, mass and lump, right lower limb (principal)
CPT/HCPCS: 76882

== ENCOUNTER → 2024-10-28 12:25 | Outpatient (BNV) | payer OTHER, SELFPAY | PROVIDERS: PCP Pediatrics; Visit Provider Radiology Diagnostic Radiology | DX: R22.41 Localized swelling, mass and lump, right lower limb (principal) | CPT/HCPCS: 76882 ==

== ENCOUNTER → 2024-10-30 14:41 | Outpatient (BNV) | payer OTHER, SELFPAY | PROVIDERS: PCP Pediatrics; Visit Provider Radiology Diagnostic Radiology | DX: S76.311A Strain of muscle, fascia and tendon of the posterior muscle group at thigh level, right thigh, initial encounter (principal) | CPT/HCPCS: 73721 ==

== ENCOUNTER 2024-10-30 14:43 | Outpatient (REF) | payer OTHER, SELFPAY ==
--- NOTE | ~2024-10-30 | MR_ITS ---
EXAMINATION: MR HIP WITHOUT CONTRAST, RIGHT TECHNIQUE: Multiplanar multisequence MR imaging through a lower extremity joints was performed right hip without contrast INDICATION: Right proximal thigh mass, anteriorly, 2-3 months, fall Prior: Ultrasound October 28, 2024 FINDINGS: Labrum: Labrum is degenerated with a tear anterosuperiorly at 10:00.. Articular Cartilage/Joint fluid: There is no joint effusion. There is mild thinning of articular cartilage in the superior lateral femoral head. Ligament/Muscle/Tendon: Ligament of teres is intact. Distal gluteus medius minimus tendon is partially torn with peritendinous fluid. Gluteus medius tendon is intact. Hamstring tendon is intact. There is no muscle edema or fatty replacement. Neurovascular: Major neurovascular structures are unremarkable and symmetrical. Deep and superficial soft tissues: Fiducial marker was placed in the region of the patient's mass. There is no mass. Instead, tensor fascia cesar muscle is demonstrated, the likely mass that was measured on ultrasound. There is no intrapelvic mass or ascites. Visualized bowel is grossly unremarkable. Subcutaneous soft tissues are within normal limits. There is no adenopathy. Bones/Marrow: Bone marrow signal is physiologic. SI joints are symmetrical without erosions, or ankylosis. Pubic symphysis joint is mildly degenerated. Foveal osteophytes are present in the right femoral head. Small anterior acetabular roof osteophytes present. MR/MR hip RT wo con IMPRESSION: There is no mass. Area shown to be a mass on ultrasound probably correlates to tensor fascia cesar muscle. There is a partial tear of the distal right gluteus minimus tendon. Mild osteoarthritis of the right hip. Anterior superior right hip labral tear. Electronically signed by: Primo Jama MD 10/30/2024 04:00 PM EDT
--- OUTSIDE RECORDS SUMMARY | 2024-10-30 14:52 | XMS_ITS | Encounter Summary ---
Author Organization [employer] Address [address] [facility] [address]t [place] [address] Care Team Providers Care Construction Rigger Name Role Phone Rama Diane MD Primary Care Provider [phone] Reason for Visit * Reason Comments Med Refill Encounter Details Date Type Department Care Team ([facility] st Contact Info) Description 06/18/2024 Refill [facility] CH[facility] MED & PEDS [address] [place], [place] [phone] Rama Diane MD [address] [place] [address] Acute cough; Acquired hypothyroidism; Age-related osteoporosis without [...] Upcoming Encounters Date Type Department Care Team ([facility] st Contact Info) Description 12/10/2024 10:15 AM EDT Office Visit [facility] MED [facility] PED[facility] [address] [place] [address] Rama Diane MD [address] [place] [address] documented as of this encounter Visit Diagnoses Diagnosis Acute cough Acquired hypothyroidism Unspecified hypothyroidism Age-related osteoporosis without current pathological fracture Breast cancer screening by mammogram Chronic right shoulder pain Pain in joint, shoulder region documented in this encounter Additional Health Concerns Assessment Noted Time PHQ-9 Depression Total Score: 18 024 10:26 AM EDT documented as of this encounter Care Teams Construction Rigger Relationship Specialty Start Date End Date Rama Diane MD [address] [place] [address] PCP - General Family Medicine 04/09/18 documented as of this encounter
--- OUTSIDE RECORDS SUMMARY | 2024-10-30 14:52 | XMS_ITS | Clinical Summary ---
Author Organization [employer] [facility] it Address [address] [place] [address] Care Team Providers Care Tree Planter Name Role Phone Unavailable Primary Care Provider [...] Procedure Name Priority Date/Time Associated Diagnosis Comments [facility] SCREENING DIGITAL Routine 09/26/2022 4:29 PM EDT Encounter for screening mammogram for malignant neoplasm of breast from Last 3 Months or Most Recently Relevant to Health Maintenance Results * [facility] SCREENING DIGITAL (09/26/2022 4:29 PM EDT) Anatomical Region Laterality Modality Mammography 09/25/2022 3:36 PM EDT Narrative 09/26/2022 4:29 PM EDT Diagnostic Imaging Department [address] [place] [address] Patient: MAYOCORINNA /Age/Sex: 1950 - 71 - F Unit#: [id number] Location/Status: [facility] CLI Mnemonic/Ordering Site: [facility] Ordering Physician: KESHAV DIANE [facility] Screening Digital - 09/25/22 - [id number] Report Status:Signed EXAM: [facility] Screening Digital EXAM DATE AND TIME: 09/25/2022 3:49 PM HISTORY: Screening. Right breast biopsy in 1992, pathology benign. COMPARISON: 07/29/21, 02/26/18, 05/24/16, 01/25/15 TECHNIQUE: CC and MLO views of both breasts were obtained using full field digital mammography. Bilateral digital breast tomosynthesis was performed in the MLO projection. Computer aided detection with [employer] 7.2-H and [employer] 3D 3.1 was employed. TISSUE DENSITY: b. [...] Routine screening mammogram BILATERAL in 1 year. 39448, 32305 3342F, 7025F Dictating Physician: JOSSY GUERRERO MD Electronically Signed by: JOSSY GUERRERO MD Dic Date/Time: 09/26/221628 Sign date/Time: 09/26/22 162 Procedure Note Jossy Guerrero MD - 05/15/2023 Diagnostic Imaging Department [address] [place] [address] Patient: CORINNA BONILLA /Age/Sex: 1950 - 71 - F Unit#: [id number] [facility] Ordering Physician: KESHAV DIANE [facility] Screening Digital - 09/25/22 - 1548 Report Status:Signed EXAM: [facility] Screening Digital EXAM DATE AND TIME: 09/25/2022 3:49 PM HISTORY: Screening. Right breast biopsy in 1992, pathology benign. COMPARISON: 07/29/21, 02/26/18, 05/24/16, 01/25/15 TECHNIQUE: CC and MLO views of both breasts were obtained using fullfield digital mammography. Bilateral digital breast tomosynthesis was performedin the MLO projection. Computer aided detection with [employer] 7.2-H and[employer] 3D 3.1 was employed. TISSUE DENSITY: b. [...] Routine screening mammogram BILATERAL in 1 year. 18818, 66560 3342F, 7025F Dictating Physician: JOSSY GUERRERO MD Electronically Signed by: JOSSY GUERRERO MD Dic Date/Time: 09/26/22 1629 Sign date/Time: 09/26/221628 Keshav Diane MD IMG BI PROCEDURES Final Resul t from Last 3 Months or Most Recently Relevant to Health Maintenance
== END 2024-10-30 14:44 | disposition home or self-care (01) ==
LOC: HO.MRI 14:43
PROVIDERS: PCP Pediatrics; Visit Provider Pediatrics
DX: R22.41 Localized swelling, mass and lump, right lower limb (principal)
CPT/HCPCS: 73721